=== PATIENT | female | born 1955 | race African-American/Black ===

== ENCOUNTER 2018-02-10 18:49 | Inpatient (IN) | payer BC ==
[~2018-02-10] VITALS: Ht 167.6 cm; Wt 149.2 kg
[~2018-02-10 18:49] MED LIST: COZAAR25 MG ORAL; IBUPROFEN600 M1 PO
--- NOTE | 2018-02-10 19:13 | Emergency Room Report ---
History of Present Illness General Chief Complaint: Multiple Trauma/Fall Source: Patient Present Illness HPI Patient is a 62-year-old female presented after mechanical fall. Patient reportedly had been ambulating on a slippery surface and subsequently fell. The patient denied head injury or loss of consciousness. She reports having pain to the anterior left groin. The patient stated that her right leg slid forward and her left leg slipped backward. The patient had been having severe difficulty with ambulation since fall. Allergies: Coded Allergies: No Known Allergies (Unverified , 02/16/12) Patient History Reviewed Nursing Documentation: PMH: Agreed; PSxH: Agreed Review of Systems All Other Systems: negative except mentioned in HPI Physical Exam General Appearance: well appearing, no apparent distress, obese Head: normocephalic, atraumatic ENT: hearing grossly normal, normal voice Neck: full range of motion, supple Respiratory: no respiratory distress, speaking full sentences Musculoskeletal: no calf tenderness Neurologic: normal gait Psychiatric: mood/affect normal Skin: no rash Medical Decision Making Diagnostic Impression: Primary Impression: Fall Additional Impression: Left acetabular fracture ER Course Patient presented after a fall. The differential diagnosis included was not limited to muscle strain, fracture, dislocation, sprain among others.Because of complexity of patient's case laboratory testing and imaging studies were ordered. Laboratory testing was unremarkable. Patient was noted to have the left hip x- ray which showed evidence of a fracture near the left acetabulum. The CT imaging of the left hip was ordered and confirmed the fracture to the left superior acetabulum and iliac bone. The patient does not have any evidence of head injury or neck injury. She prior history of hypertension. The patient will need to be transferred for higher level of care due to specialty surgery requirement Labs Test 02/10/18 20:50 White Blood Count 9.6 K/UL (4.8-10.8) Red Blood Count 4.61 M/UL (4.20-5.40) Hemoglobin 12.8 G/DL (12.0-16.0) Hematocrit 38.9 % (37.0-47.0) Mean Corpuscular Volume 84 FL (80-99) Mean Corpuscular Hemoglobin 27.7 PG (27.0-31.0) Mean Corpuscular Hemoglobin Concent 32.9 G/DL (32.0-36.0) Red Cell Distribution Width 14.4 % (11.6-14.8) Platelet Count 215 K/UL (150-450) Mean Platelet Volume 8.5 FL (6.5-10.1) Neutrophils (%) (Auto) 64.7 % (45.0-75.0) Lymphocytes (%) (Auto) 23.1 % (20.0-45.0) Monocytes (%) (Auto) 7.9 % (1.0-10.0) Eosinophils (%) (Auto) 2.4 % (0.0-3.0) Basophils (%) (Auto) 1.8 % (0.0-2.0) Prothrombin Time 10.4 SEC (9.30-11.50) Prothromb Time International Ratio 1.0 (0.9-1.1) Activated Partial Thromboplast Time 27 SEC (23-33) Sodium Level 141 MMOL/L (136-145) Potassium Level 4.7 MMOL/L (3.5-5.1) Chloride Level 105 MMOL/L (98-107) Carbon Dioxide Level 31 MMOL/L (21-32) Anion Gap 5 mmol/L (5-15) Blood Urea Nitrogen 14 mg/dL (7-18) Creatinine 1.0 MG/DL (0.55-1.30) Estimat Glomerular Filtration Rate > 60 mL/min (>60) Glucose Level 105 MG/DL (74-106) Calcium Level 9.4 MG/DL (8.5-10.1) Total Bilirubin 1.0 MG/DL (0.2-1.0) Aspartate Amino Transf (AST/SGOT) 14 U/L (15-37) Alanine Aminotransferase (ALT/SGPT) 20 U/L (12-78) Alkaline Phosphatase 77 U/L (46-116) Troponin I 0.000 ng/mL (0.000-0.056) Total Protein 7.7 G/DL (6.4-8.2) Albumin 3.6 G/DL (3.4-5.0) Globulin 4.1 g/dL Albumin/Globulin Ratio 0.9 (1.0-2.7) Status: improved Disposition: [facility] Clifford Finley MD Feb 10, 2018 19:13
[2018-02-10] MEDS ORDERED: Norco 5mg/325mg tab ORAL ONE (19:45)
[2018-02-10 21:07] LABS: BASOPHILS % (AUTO) 1.8 % (0.0-2.0); EOSINOPHILS % (AUTO) 2.4 % (0.0-3.0); HEMATOCRIT 38.9 % (37.0-47.0); HEMOGLOBIN 12.8 G/DL (12.0-16.0); LYMPHOCYTES % (AUTO) 23.1 % (20.0-45.0); MEAN CORPUSCULAR VOLUME 84 FL (80-99); MONOCYTES % (AUTO) 7.9 % (1.0-10.0); NEUTROPHILS % (AUTO) 64.7 % (45.0-75.0); PLATELET COUNT 215 K/UL (150-450); RED BLOOD COUNT 4.61 M/UL (4.20-5.40); RED CELL DISTRIBUTION WIDTH 14.4 % (11.6-14.8); WHITE BLOOD COUNT 9.6 K/UL (4.8-10.8)
[2018-02-10 21:19] LABS: ANION GAP 5 mmol/L (5-15); BLOOD UREA NITROGEN 14 mg/dL (7-18); CALCIUM 9.4 MG/DL (8.5-10.1); CARBON DIOXIDE 31 MMOL/L (21-32); CHLORIDE 105 MMOL/L (98-107); POTASSIUM 4.7 MMOL/L (3.5-5.1); SODIUM 141 MMOL/L (136-145)
[2018-02-10 21:30] LABS: ALANINE AMINOTRANSFERASE 20 U/L (12-78); ALBUMIN 3.6 G/DL (3.4-5.0); ALBUMIN/GLOBULIN RATIO 0.9 (1.0-2.7); ALKALINE PHOSPHATASE 77 U/L (46-116); ASPARTATE AMINO TRANSFERASE 14 U/L (15-37)
[2018-02-10 21:55] VITALS: BP 162/78
[2018-02-10 23:00] VITALS: BP 157/89
[2018-02-11] VITALS (8 sets, daily range): BP systolic 142–174; BP diastolic 69–100
[2018-02-11] MEDS ORDERED: JANUVIA25 MG ORAL (02:10)
[2018-02-11] MEDS ORDERED: ASPIR 8181 MG ORAL (02:10)
[2018-02-11] MEDS ORDERED: IRON325 M1 PO (02:12)
[2018-02-11] MEDS ORDERED: RANITIDINE HCL150 M1 ORAL (02:34)
[2018-02-11] MEDS ORDERED: Zolpidem 5mg tab ORAL PRN (04:15)
[2018-02-11] MEDS ORDERED: oxyCODONE HCL/Acetaminophen 5/325mg ORAL PRN (04:15)
[2018-02-11] MEDS ORDERED: Milk of Magnesia 30ml Ud ORAL PRN (04:15)
[2018-02-11] MEDS: NovoLOG Insulin Flexpen SUBQ SCH ×4 (06:30→20:30)
[2018-02-11] MEDS: sitaGLIPtin 25mg tab ORAL SCH (06:33)
--- NOTE | 2018-02-11 08:40 | Diagnostic Imaging Report ---
Indication: And left hip pain, status post fall Technique: 2 views of the left hip, one view of the pelvis Comparison: none Findings: There is a comminuted intra-articular nondisplaced fracture of the lateral acetabulum. No femoral fracture demonstrated. Calcifications in the pelvis may reflect degenerative fibroids Impression: Positive for left acetabular fracture, confirmed on subsequent CT scan
--- NOTE | 2018-02-11 08:45 | Diagnostic Imaging Report ---
Indication: Left sided hip pain, status post fall Technique: No IV contrast, per trauma protocol Spiral acquisitions obtained through the pelvis and left hip Multiplanar reconstructions were generated. Total dose length product 946.91 mGycm. CTDIvol(s) 31.77 mGy. Radiation dose was minimized using automated exposure control Comparison: Plain radiographs taken earlier the same day Findings: There is a comminuted fracture of the anterior aspect of the acetabulum, extending into the roof. Fragments are minimally displaced. No associated femoral fracture. There is mild surrounding soft tissue edema. No other acute fractures. No dislocations. The joint spaces are preserved. There are degenerative changes of the lumbosacral junction The uterus is enlarged, consistent with fibroid changes. Some calcifications are consistent with old degenerated fibroids. Impression: Positive for left acetabular fracture Incidental finding of fibroid uterus with calcifications. This agrees with the preliminary interpretation provided overnight by [facility] teleradiology service. The CT scanner at [facility] is accredited by the [employer] and the scans are performed using protocols designed to limit radiation exposure to as low as reasonably achievable to attain images of sufficient resolution adequate for diagnostic evaluation.
[2018-02-11] MEDS ORDERED: Losartan 25mg tab ORAL SCH (09:00)
[2018-02-11] MEDS: Heparin 5000 units/ml inj SUBQ SCH ×2 (09:26→20:26)
--- NOTE | 2018-02-11 15:46 | Diagnostic Imaging Report ---
Indication: Shortness of breath Technique: One view of the chest Comparison: none Findings: Patient is rotated to the right. The lungs and pleural space are clear. The heart size is borderline enlarged. The aorta is tortuous and ectatic Impression: No acute process
--- NOTE | 2018-02-11 18:00 | History and Physical Report ---
DATE OF ADMISSION: 02/11/2018 REASON FOR ADMISSION: Acetabular fracture. HISTORY: A 62-year-old female, status post mechanical fall. The patient denies any syncope. The patient apparently was ambulating and slipped on a slippery surface. The patient denies any other complaints. The patient denies any cardiac history. Denies any pulmonary issues. The patient denies any heart attacks. Denies any syncopal episodes. PAST MEDICAL HISTORY: Notable for diabetes only. MEDICATIONS: Reviewed. ALLERGIES: Reviewed. SOCIAL HISTORY: Denies smoking or drinking. REVIEW OF SYSTEMS: All 10-points reviewed and otherwise negative. PHYSICAL EXAMINATION: VITAL SIGNS: Elevated blood pressure 165/90, pulse 73, respirations 18, and temperature 97.8. HEENT: Negative. LUNGS: Clear and symmetric. CARDIAC: Normal S1, S2. Regular rate and rhythm. ABDOMEN: Soft and nontender. Pain in the hip, but comfortable at present, left-sided. NEUROLOGIC: Grossly nonfocal. LABORATORY DATA: Reviewed. CBC normal. Chemistries fairly negative. Coagulation factor is negative. IMPRESSION: 1. Status post fall. 2. Hip fracture. 3. Diabetes. 4. Clinically appears stable. RECOMMENDATIONS: 1. per ortho, no surgery needed; nonweight bearing for now and aspirin 2. Continue supportive care. 3. DVT prophylaxis. 4. Pain control. 5. Patient with plan to dc home with home health Lev Su M.D. DR: JON JOB#: [id number] CC: ANTONY
--- NOTE | 2018-02-11 20:15 | Consultation ---
DATE OF CONSULTATION: 02/11/2018 ORTHOPEDIC CONSULTATION CONSULTING PHYSICIAN: Payam Brady M.D. REQUESTING PHYSICIAN: Lev Su M.D. DIAGNOSIS: Left acetabular minimally displaced fracture. 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 She sustained the above injury. CT scan confirmed the diagnosis. She was brought to the hospital because of left hip and groin pain. PAST MEDICAL HISTORY: Significant for obesity, [id number] diabetes, and hypertension. PAST SURGICAL HISTORY: She has not had any previous surgery. She is . ALLERGIES: She has no known drug allergies. REVIEW OF SYSTEMS: A 12-point review of systems is negative. PHYSICAL EXAMINATION: GENERAL: She is well appearing, in no distress. EXTREMITIES: Bilateral lower extremities are of equal length. She has no pain with log rolling of either leg. She has pain with straight leg raise on the left and has difficulty doing so. LABORATORY AND DIAGNOSTIC DATA: Radiographs and CT scan of the left hip show a minimally displaced lateral acetabular fracture with no step-off at the joint and minimal lateral fragmentation. ASSESSMENT AND PLAN: The patient sustained a left acetabular fracture. She has no pain with logrolling. The concentricity of the acetabulum remains intact. There is no step-off at the articular surface. I have recommended strict nonweightbearing for treatment. Follow up radiographs should be obtained in two weeks to make sure there is no fracture migration or need for operative intervention. If she is going to be with diminished activity, I recommend DVT prophylaxis for a period of 1 month. Once again, she should follow up with Orthopedics in 10 days for repeat radiographs. Thank you for the opportunity to consult. Payam Brady M.D. DR: PRISCILLA JOB#: [id number] CC:
[2018-02-11] MEDS: Losartan 50mg tab ORAL SCH (20:22)
--- NOTE | 2018-02-11 20:30 | Consultation ---
DATE OF CONSULTATION: 02/11/2018 CONSULTING PHYSICIAN: New Mcintosh M.D. REFERRING PHYSICIAN: Lev Su M.D. HISTORY OF PRESENT ILLNESS: the patient is a pleasant female who has had mechanical fall. She was diagnosed with acetabular fracture. Orthopedic consultation was obtained for further care and recommendation. PAST MEDICAL HISTORY: Significant for diabetes and BMI of over 40. PAST SURGICAL HISTORY: None listed. MEDICATIONS: Reviewed per intake chart. SOCIAL HISTORY: Noncontributory. REVIEW OF SYSTEMS: Unremarkable. PHYSICAL EXAMINATION: GENERAL: The patient is alert and oriented. She is resting comfortably at this time in bed. MUSCULOSKELETAL: Left hip examination shows pain with internal and external rotation, positive heel strike, neurovascularly is normal. Posterior calf is soft. DIAGNOSTIC DATA: CT scan of the left hip shows what appears to be a fracture through the anterior column with minimal displacement of fracture fragments. ASSESSMENT: 1. Left acetabular fracture. 2. BMI over 40. 3. Diabetes. DISCUSSION: At this point, given the medical issues as well as the fact that the fracture is nondisplaced, what I recommend is nonoperative treatment in the form of nonweightbearing for the next 6 weeks. At that point, she will begin some gradual weightbearing over 6-8 weeks. I discussed with her it is going to be little challenging for her, but if the fracture fragment heals in the current position, she should be able to have functional recovery. She may be at increased risk for posttraumatic arthrosis that may necessitate future surgery such as hip replacement. At the present time, she should do fine with conservative treatment. New Mcintosh M.D. DR: Terrie JOB#: [id number] CC: Lev Su M.D.; Fax#: [phone]
[2018-02-12] VITALS (7 sets, daily range): BP systolic 142–178; BP diastolic 78–91
[2018-02-12] MEDS: sitaGLIPtin 25mg tab ORAL SCH (05:50)
[2018-02-12] MEDS: NovoLOG Insulin Flexpen SUBQ SCH ×4 (05:50→21:01)
[2018-02-12] MEDS: Losartan 50mg tab ORAL SCH ×2 (09:47→20:58)
[2018-02-12] MEDS: Heparin 5000 units/ml inj SUBQ SCH ×2 (09:49→21:00)
--- NOTE | 2018-02-12 11:36 | General Progress Note ---
Assessment/Plan Assessment/Plan 1. Status post fall. 2. Hip fracture. 3. Diabetes. 4. Clinically appears stable. PLAN dc home norco prn ortho recommendations on dc aspirin daily x 6 weeks home health Subjective Allergies: Coded Allergies: No Known Allergies (Unverified , 02/16/12) Subjective comfortable cleared by ortho Objective Last 24 Hour Vital Signs Date Time Temp Pulse Resp B/P (MAP) Pulse Ox O2 Delivery O2 Flow Rate FiO2 02/12/18 10:45 97.2 02/12/18 09:47 156/79 02/12/18 09:46 97.2 02/12/18 09:00 Room Air 02/12/18 08:30 97.2 67 19 156/79 (104) 98 97.2 02/12/18 05:54 69 152/91 (111) 02/12/18 04:08 157/88 02/12/18 04:00 97.8 66 17 157/88 (111) 97 97.8 02/12/18 00:00 98.2 77 18 142/83 (102) 96 98.2 02/11/18 21:00 Room Air 02/11/18 20:22 156/85 02/11/18 20:00 98.4 78 19 156/85 (108) 97 98.4 02/11/18 18:32 98.4 02/11/18 16:00 98.4 78 20 146/77 (100) 95 98.4 02/11/18 12:25 98.6 02/11/18 12:03 98.6 70 20 174/100 (124) 95 98.6 Intake and Output 02/11/18 02/12/18 19:00 07:00 Intake Total 775 ml 300 ml Output Total 700 ml Balance 775 ml -400 ml Intake Oral 775 ml 300 ml Output Urine Total 700 ml Height (Feet): 5 Height (Inches): 6.00 Weight (Pounds): 329 Objective WDWN NAD clear breath sounds bilaterally without rhonchi or wheeze [id number] without MRG NABS nontender no HSM no CC; mild edema alert nonfocal Lev Su MD Feb 12, 2018 11:36
[2018-02-13] VITALS: BP 154/84
[2018-02-13 04:00] VITALS: BP 150/82
[2018-02-13] MEDS: NovoLOG Insulin Flexpen SUBQ SCH ×3 (06:30→16:30)
[2018-02-13] MEDS: sitaGLIPtin 25mg tab ORAL SCH (06:34)
[2018-02-13 08:00] VITALS: BP 158/90
[2018-02-13] MEDS: Losartan 50mg tab ORAL SCH (09:25)
[2018-02-13] MEDS: Heparin 5000 units/ml inj SUBQ SCH (09:29)
[2018-02-13 12:00] VITALS: BP 160/92
[2018-02-13 16:00] VITALS: BP 168/74
[2018-02-13] MEDS ORDERED: ASPIRIN300 MG RECTAL (18:06)
[2018-02-13] MEDS ORDERED: ASPIRIN EC325 MG ORAL (18:06)
[2018-02-13 20:00] VITALS: BP 172/66
--- NOTE | 2018-02-16 08:21 | Discharge Summary ---
Discharge Summary Discharge Summary _ DATE OF ADMISSION: 02/11/2018 DATE OF DISCHARGE: 02/13/2018 REASON FOR ADMISSION: 62 years old female with past medical history of diabetes and hypertension, presented to emergency department after mechanical fall. Patient denied syncope, loss of consciousness , dizziness, head injury. Patient was ambulated and slipped. No chest pain or shortness of breath . Laboratory workup was unremarkable X-ray of the left hip revealed left acetabular fracture . CT of the left hip confirmed left acetabular fracture. X ray of the pelvis and left hip again demonstrated nondisplaced intra- articular fracture of the lateral acetabulum, but no femoral fracture. Patient admitted with diagnoses of status post mechanical fall, left hip fracture, diabetes mellitus CONSULTANTS: Orthopedic surgery: 1. Dr. Mcintosh. 2. Dr. Brady [facility]SE: Patient admitted to [facility] floor. Orthopedic surgery consult was requested. Pain management was provided. DVT prophylaxis provided. Both orthopedic surgeons concurred that at this time, due top the fact that the fracture was nondisplaced , nonoperative treatment in the form of nonweightbearing for the next 6 weeks, was the best possible option for this patient. DVT prophylaxis with aspirin for 6 weeks recommended. Venous duplex bilateral lower extremities was negative. Orthopedic surgery recommend follow-up with x-rays of the left hip in 2 weeks to make sure that there will be no fracture migration or need for operative intervention. After 6 weeks, if X rays stable, patient could start gradually increase her activity. Patient agreed with the following plan. Pain was controlled. Blood pressure was managed with angiotensin receptor kendall and remained stable. Blood sugar was managed with sliding scale of insulin. Patient was stable for discharge home, with non weight bearing status for 6 weeks , with home health services to follow FINAL DIAGNOSES: Status post mechanical fall Left hip acetabular fracture, nondisplaced Diabetes mellitus Morbid obesity DISCHARGE MEDICATIONS: See Medication Reconciliation list. DISCHARGE INSTRUCTIONS: Patient was discharged home with home health services. Follow up with primary care provider in one week. Follow-up with orthopedic surgeon in 2 weeks for repeat x-rays I have been assigned to dictate discharge summary for this account. I was not involved in the patient's management. Cherelle Brand NP Feb 16, 2018 08:21
== END 2018-02-13 21:40 | disposition home health service (06) | DRG 536 ==
LOC: EMR 19:30 → 3E 02-11 01:24 → EDBEDREQ 02-11 01:28 → 3E 02-11 03:39
DX: S32.492A Other specified fracture of left acetabulum, initial encounter for closed fracture (principal); Z68.41 Body mass index [BMI] 40.0-44.9, adult; W01.0XXA Fall on same level from slipping, tripping and stumbling without subsequent striking against object, initial encounter; E66.9 Obesity, unspecified; E11.9 Type 2 diabetes mellitus without complications; I10 Essential (primary) hypertension; E66.01 Morbid (severe) obesity due to excess calories
CPT/HCPCS: 36415; 71045; 72170; 73502; 80053; 82962; 84484; 85025; 85610; 85730; 93005; 93970; J1815